=== PATIENT | female | born 1980 | race Caucasian/White ===

== ENCOUNTER 2019-12-14 10:07 | Outpatient (CLI) | payer OTHER | END 2019-12-14 10:24 | disposition home or self-care (01) | LOC: SONOGRAMA 10:07 | PROVIDERS: ATTEND Orthopaedic Surgery | DX: M25.512 Pain in left shoulder (principal); M25.522 Pain in left elbow ==

== ENCOUNTER 2020-01-14 09:00 | Outpatient (CLI) | payer OTHER | END 2020-01-14 09:02 | disposition home or self-care (01) | LOC: MAMO-SONO 09:00 | PROVIDERS: ATTEND Obstetrics & Gynecology | DX: Z12.31 Encounter for screening mammogram for malignant neoplasm of breast (principal); N64.4 Mastodynia ==